=== PATIENT | female | born 1985 | race Asian ===

== ENCOUNTER 2017-01-14 00:30 | Inpatient (IN) | payer SELFPAY ==
[~2017-01-14] VITALS: Ht 154.9 cm; Wt 61.7 kg
[2017-01-14] MEDS ORDERED: LACTATED RINGERS 1,000 ML IV SCH (00:56)
[2017-01-14] MEDS ORDERED: NALBUPHINE HYDROCHLORIDE 10 MG/ML VIAL IVP PRN (01:00)
[2017-01-14] MEDS ORDERED: MISOPROSTOL 25 MCG TAB VG SCH (01:00)
[2017-01-14] MEDS ORDERED: OXYTOCIN 10 UNITS/ML VIAL IM SCH (01:00)
[2017-01-14] MEDS ORDERED: PROMETHAZINE 25 MG/ML VIAL IVP PRN (01:00)
[2017-01-14] MEDS ORDERED: LACTATED RINGERS 500 ML IV SCH (01:00)
[2017-01-14 01:16] LABS: BASOPHILS # (AUTO) 0.1 K/uL (0.00-0.22); EOSINOPHILS # (AUTO) 0.2 K/uL (0-0.4); HEMATOCRIT 33.3 % (36-48); HEMOGLOBIN 10.6 g/dL (12.0-16.0); LYMPHOCYTES # (AUTO) 1.8 K/uL (2.5-16.5); MEAN CORPUSCULAR HEMOGLOBIN 30 pg (27-31); MEAN CORPUSCULAR HGB CONC 32 g/dL (33-37); MEAN CORPUSCULAR VOLUME 94 fL (80-94); MONOCYTES # (AUTO) 0.4 K/uL (0.8-1.0); MONOCYTES % (AUTO) 5.1 % (1.7-9.3); NEUTROPHILS # (AUTO) 5.2 K/uL (1.8-7.7); NEUTROPHILS % (AUTO) 67.9 % (42.2-75.2); PLATELET COUNT (AUTO) 164 K/uL (140-450); RED BLOOD CELL COUNT(AUTO) 3.52 MIL/uL (4.20-5.40); RED CELL DISTRIBUTION WIDTH 14.5 % (11.6-13.7); WHITE BLOOD COUNT (AUTO) 7.7 K/uL (4.8-10.8)
[2017-01-14 01:18] VITALS: BP 98/58
[2017-01-14 01:18] LABS: APPEARANCE,URINE CLEAR (CLEAR); BILIRUBIN,URINE NEGATIVE (NEGATIVE); BLOOD, URINE NEGATIVE (NEGATIVE); COLOR,URINE YELLOW (YELLOW); LEUKOCYTE ESTERASE ,URINE NEGATIVE (NEGATIVE); NITRITE, URINE NEGATIVE (NEGATIVE); PROTEIN,URINE NEGATIVE (NEGATIVE); UGLUCOSE NEGATIVE (NEGATIVE); UROBILINOGEN,URINE 0.2 EU/dL (0.2 - 1)
[2017-01-14] MEDS ORDERED: MISOPROSTOL 25 MCG TAB ONE (01:38)
[2017-01-14 02:15] LABS: BACTERIA,URINE FEW /HPF (None Seen); RBC,URINE 0-5 (RARE) /HPF (0-5); SQUAMOUS EPITHELIAL CELL,UR 0-3 (FEW) /LPF (0-3 (FEW)); WBC,URINE 0-5 (RARE) /HPF (0-5)
[2017-01-14] MEDS ORDERED: CALCIUM (02:53)
[2017-01-14] MEDS ORDERED: FERR325C PO (02:53)
[2017-01-14] MEDS ORDERED: PREN-546 PO (02:53)
[2017-01-14] MEDS ORDERED: BUPIVACAINE 0.125%/NS PREMIX 250 ML ONE (05:54)
[2017-01-14] MEDS ORDERED: OXYTOCIN 20 UNITS/LR PREMIX 1,000 ML IV SCH (06:00)
[2017-01-14] MEDS ORDERED: OXYTOCIN 20 UNITS/LR PREMIX 1,000 ML IV ONE (06:38)
[2017-01-14] MEDS ORDERED: SODIUM BICARBONATE 8.4% PFS 50 MEQ/50 ML SYR IVP ONE (09:07)
[2017-01-14] MEDS ORDERED: LIDOCAINE/EPI MPF 2%1:200000 10 ML VIAL INJ ONE ×2 (09:08)
[2017-01-14] MEDS ORDERED: MORPHINE PRES FREE 10 MG/10 ML AMP IV ONE (09:08)
[2017-01-14] MEDS ORDERED: OXYTOCIN 10 UNITS/ML VIAL ONE (10:37)
--- NOTE | 2017-01-14 10:42 | NUR ---
PATIENT HAS BEEN SCREENED AND CATEGORIZED LOW NUTRITION RISK. PATIENT WILL BE SEEN WITHIN 7 DAYS OF ADMISSION. 01/20/[address]
[2017-01-14] MEDS ORDERED: METHYLERGONOVINE 0.2 MG/ML AMP IM PRN (13:10)
[2017-01-14] MEDS ORDERED: TEMAZEPAM 15 MG CAP PO PRN (13:10)
[2017-01-14] MEDS ORDERED: oxyCODONE/APAP 5/325 MG 1 TAB TAB PO PRN (13:10)
[2017-01-14] MEDS ORDERED: BENZOCAINE/MENTHOL 20%-0.5% 60 GM CAN TP PRN (13:10)
[2017-01-14] MEDS ORDERED: OXYTOCIN 10 UNITS/ML VIAL IM PRN (13:10)
[2017-01-14] MEDS ORDERED: WITCH HAZEL 40 PAD PACKAGE TP PRN (13:10)
[2017-01-14] MEDS ORDERED: MEASLES, MUMPS, AND RUBELLA 1 VIAL SQVAC PRN (13:10)
[2017-01-14] MEDS ORDERED: IBUPROFEN 800 MG TAB PO PRN (13:10)
[2017-01-14] MEDS ORDERED: oxyCODONE/APAP 5/325 MG 1 TAB TAB ONE (13:23)
[2017-01-14] MEDS: HYDROcodone/APAP 5/325 MG 1 TAB TAB PO PRN ×2 (17:59→21:08)
[2017-01-14] MEDS ORDERED: DOCUSATE SOD/SENNA 50/8.6 MG 1 TAB PO SCH (21:00)
[2017-01-15] MEDS: HYDROcodone/APAP 5/325 MG 1 TAB TAB PO PRN ×2 (01:51→13:31)
[2017-01-15 06:26] LABS: HEMOGLOBIN 9.5 g/dL (12.0-16.0)
== END 2017-01-15 17:45 | disposition home or self-care (01) | DRG 775 ==
LOC: MLD 00:30 → MFCC 15:15
PROVIDERS: ADMIT Obstetrics & Gynecology; ATTEND Obstetrics & Gynecology
PROC: 10D07Z6 Extraction of Products of Conception, Vacuum, Via Natural or Artificial Opening (ICD-10-PCS; principal; 2017-01-14)
PROC: 10907ZC Drainage of Amniotic Fluid, Therapeutic from Products of Conception, Via Natural or Artificial Opening (ICD-10-PCS; 2017-01-14)
PROC: 3E0S3CZ (ICD-10-PCS; 2017-01-14)
PROC: 00HU33Z Insertion of Infusion Device into Spinal Canal, Percutaneous Approach (ICD-10-PCS; 2017-01-14)
PROC: 3E0234Z Introduction of Serum, Toxoid and Vaccine into Muscle, Percutaneous Approach (ICD-10-PCS; 2017-01-14)
PROC: 3E0P7GC Introduction of Other Therapeutic Substance into Female Reproductive, Via Natural or Artificial Opening (ICD-10-PCS; 2017-01-14)
PROC: 0W8NXZZ Division of Female Perineum, External Approach (ICD-10-PCS; 2017-01-14)
DX: O75.89 Other specified complications of labor and delivery (principal); Z3A.39 39 weeks gestation of pregnancy; Z37.0 Single live birth; Z23 Encounter for immunization
CPT/HCPCS: 36415; 51702; 59200; 81001; 85018; 85025; 86592; 86886; 86900; 86901; 90715; J2001; J2270; J2590; J3490; J7120